=== PATIENT | female | born 2000 ===

== ENCOUNTER 2024-12-22 21:15 | Emergency (ER) | payer SELFPAY ==
--- OUTSIDE RECORDS SUMMARY | 2024-12-22 21:18 | XMS_ITS | Clinical Summary ---
Author Organization [facility] Address [address] [place] [address] Phone Care Team Providers Care Ladle Pourer Name Role Phone Ronald, Ashlie Marcelino APRN, TRI Primary Care Provider Allergies Active Allergy Reactions Criticality Noted Date Comments Amoxicillin Rash 01/10/2016 Penicillins Unknown 10/22/2018 Medications FLUoxetine (PROZAC) 20 MG Capsule Take 20 mg by mouth daily. Active traZODone (DESYREL) 50 MG Tablet Take 50 mg by mouth nightly. Active Norethin Chriss-Eth Estrad-FE 1.5-30 MG-MCG Tablet Take 1 Tab by mouth daily. Active Loratadine 10 MG Capsule Take 10 mg by mouth daily. Active fluticasone (FLONASE ALLERGY RELIEF) 50 MCG/ACT Suspension 1-2 Sprays by Nasal route daily. Use in each nostril as directed. 1 Bottle 3 6 Active ibuprofen (MOTRIN) 800 MG Tablet Take 1 Tab by mouth every 8 hours as needed for Pain. 30 Tab 7 Active ibuprofen (MOTRIN) 600 MG Tablet Take 1 Tab by mouth every 8 hours. 20 Tab 9 Active cyclobenzaprine (FLEXERIL) 10 MG Tablet Please take 1/2 tablet(5mg) PO TID prn muscle spasms 5 Tab 9 Active Etonogestrel (NEXPLANON SC) by Subcutaneous route. Active ibuprofen (MOTRIN) 600 MG Tablet Take 1 Tab by mouth every 8 hours as needed for Moderate or more severe pain. 20 Tab 9 Active diazePAM (VALIUM) 5 MG Tablet Take 1 Tab by mouth every 8 hours as needed for Other (paresthesias). 12 Tab 9 Active methylPREDNISol one (MEDROL DOSPACK) 4 MG Tablet Therapy Pack See product package insert for dosing schedule 21 Tab 0 Active azithromycin (ZITHROMAX Z-ALISHA) 250 MG Tablet 2 tab(s) daily for 1 day, then 1 tab(s) daily for days 2-5. 6 Tab 0 Active ondansetron (Zofran ODT) 4 MG TABLET DISPERSIBLE Take 1 Tablet by mouth every 8 hours as needed for Nausea - 1st line. 20 Tablet 1 Active Active Problems No known active problems Immunizations Immunization Administration Dates Next Due TDAP Vaccine 04/23/2019 Social History Tobacco Use Types Packs/Day Years Used Date Smoking Tobacco: Passive Smo ke Exposure - Never Smoker Smokeless Tobacco: Never Alcohol Use Standard Drinks/Week Comments No 0 (1 standard drink = 0.6 oz pur e alcohol) Comments No Sex and Gender Information Value Date Recorded Sex Assigned at Not on file Legal Sex Female 10:40 PM CDT Gender Identity Not on file Sexual Orientation Not on file Last Filed Vital Signs Vital Sign Reading Time Taken Comments Blood Pressure 147/87 11/07/2020 4:19 PM CDT Pulse 84 11/07/2020 4:19 PM CDT Temperature 36.6 C (97.9 F) 11/07/2020 1:30 PM CDT Respiratory Rate 22 11/07/2020 1:33 PM CDT Oxygen Saturation 98% 11/07/2020 1:33 PM CDT Inhaled Oxygen Concentration - - Weight 108.4 kg (239 lb) 11/07/2020 1:33 PM CDT Height 144.8 cm (4' 9) 11/07/2020 1:33 PM CDT Body Mass Index 51.72 11/07/2020 1:33 PM CDT Plan of Treatment Health Maintenance Due Date Last Done Comments Hepatitis C Virus (HCV) Screening 2000 SARS-COV-2 Immunization ( season) 2024 12/03/2020, 10/31/2020 Influenza Immunization (Season Ended) 2025 04/17/2016, 03/19/2014, 03/28/2013, Additional history exists Respiratory Syncytial Virus (RSV) Immunization (Adult) (1 - 1-dose 75+ series) 02/09/2075 Hepatitis B Immunization Completed 001, 2000, 2000 Pneumococcal Immunization Combined Aged Out 2000, 2000, 2000 No longer eligible based on patient's age to complete this topic Human Papillomavirus (HPV) Immunization Completed 08/10/2012, 04/13/2012, 02/04/2012 Meningococcal Immunization (ACWY) Completed 09/27/2016, 05/07/2011 DTaP/Tdap/Td Immunization Discontinued 2018, 04/08/2010, 03/05/2004, Additional history exists Rotavirus Immunization Aged Out No lo nger eligible based on patient's age to complete this topic Insurance MEDICAID [employer] Care Teams Ladle Pourer Relationship Specialty Start Date End Date Ashlie Cardenas APRN, CNP [address] [place] [address] PCP - General Advanced Practice Nurse 01/09/20
[2024-12-22 21:23] VITALS: BP 130/78; PULSE 106; RESP 20; TEMP 36.6
--- OUTSIDE RECORDS SUMMARY | 2024-12-22 22:02 | XMS_ITS | Clinical Summary ---
Author Organization [facility] Address [address] [place] [address] Phone Care Team Providers Care Credit Card Specialist Name Role Phone Ronald, Ashlie Marcelino APRN, [...] HEALTH PLAN GENERIC MED[place]ID [place] Care Teams Credit Card Specialist Relationship Specialty Start Date End Date Ashlie Cardenas APRN, CNP [address] [place] [address] PCP - General Advanced Practice Nurse 01/09/20
--- OUTSIDE RECORDS SUMMARY | 2024-12-22 22:02 | XMS_ITS | Clinical Summary ---
Author Organization [facility] Address [address] [place] [address] Care Team Providers Care Toppiece Chopper Name Role Phone Rc Rome MD Primary Care Provider [phone] Allergies Active Allergy Reactions Criticality Noted Date Comments Amoxicillin Anaphylaxis High 04/09/2022 Animal Dander Hives High 09/15/2024 Ciprofloxacin Hives High 09/15/2024 Penicillins Anaphylaxis,Rash,Lupe rt ness of Breath/Wheezing,Unknow n,Hives High 01/10/2016 throat swells up and hives all over with penicillin, amoxicillin; pt unsure if she has had cephalosporins in the past Medications albuterol sulfate HFA 90 mcg/actuation aerosol inhaler INHALE 2 PUFFS BY MOUTH EVERY 4 HOURS NEEDED FOR SHORTNESS OF BREATH OR WHEEZING OR COUGH 4 Active ARIPiprazole (ABILIFY) 5 mg tablet Take 5 mg by mouth. 4 Active busPIRone (BUSPAR) 10 mg tablet Take 10 mg by mouth 2 times daily. 4 Active loratadine 10 mg Capsule Take 10 mg by mouth daily. Active PARoxetine HCl (PAXIL) 20 mg tablet Take 20 mg by mouth daily in the morning. 4 Active ondansetron (ZOFRAN) 4 mg Tablet Take 1 Tablet (4 mg) by mouth every 8 hours as needed for Nausea/Emesis. 10 Tablet 5 Active ibuprofen (MOTRIN) 800 mg tablet Take 1 Tablet (800 mg) by mouth every 6 hours as needed for Pain. 40 Tablet Active HYDROcodone-elisabeth taminophen (NORCO) 5-325 mg tabletIndicatio ns:Burn (any degree) involving less than 10% of body surface Take 1 Tablet by mouth every 4 hours as needed for Pain. Max Daily Amount: 6 Tablets 20 Tablet Active Active Problems No known active problems Encounters Date Type Department Care Team Description 12/18/2024 External Device Data [facility]STRACTION Provider, Abstract 12/11/2024 External Device Data [facility] Provider, Abstract 12/11/2024 External Device Data [facility] Provider, Abstract 11/08/2024 External Device Data [facility] Provider, Abstract 10/16/2024 External Device Data [facility]STRACTION Provider, Abstract 10/16/2024 External Device Data [facility]STRACTION Provider, Abstract 10/16/2024 External Device Data [facility]STRACTION Provider, Abstract from Last 3 Months Social History Tobacco Use Types Packs/Day Years Used Date Smoking Tobacco: Unknown Tobacco Cessation:Counseling Given: Not Answered Feeling Safe Answer Date Recorded Are you in a relationship wi th someone who hurts you emotionally and/or physically? No 09/15/2024 Comments Unknown Sex and Gender Information Value Date Recorded Sex Assigned at Not on file Legal Sex Female 4:54 PM CDT Gender Identity Not on file Sexual Orientation Not on file Last Filed Vital Signs Vital Sign Reading Time Taken Comments Blood Pressure 121/81 09/15/2024 8:56 PM CDT Pulse 92 06/21/2024 11:10 AM CISCO ENGINEER Temperature 36.3 C (97.4 F) 09/15/2024 8:56 PM CDT Respiratory Rate 18 09/15/2024 8:56 PM CDT Oxygen Saturation 100% 09/15/2024 8:56 PM CDT Inhaled Oxygen Concentration - - Weight 104.3 kg (230 lb) 09/15/2024 8:56 PM CDT Height 144.8 cm (4' 9) 09/15/2024 8:56 PM CDT Body Mass Index 49.77 09/15/2024 8:56 PM CDT Plan of Treatment Health Maintenance Due Date Last Done Comments HPV VACCINES (1 - 3-dose series) 02/09/2015 HEPATITIS B VACCINES (1 of 3 - 19+ 3-dose series) 02/09/2019 HPV/Cotest (21-29) 02/09/2021 COVID-19 Vaccine (4 - 2023-2 5 season) 2024 09/16/2022, 11/28/2020, 10/31/2020 INFLUENZA VACCINE (#1) 2025 CERVICAL CANCER SCREENING 11/17/2025 PAP SMEAR 11/17/2025 11/17/2022 DTAP/TDAP/TD VACCINES (2 - T d or Tdap) 04/23/2029 04/23/2019 Insurance [facility] [place]ICA[place] [id number] [facility] MEDICAID Care Teams Toppiece Chopper Relationship Specialty Start Date End Date Rc Rome MD [address] [place] [address] PCP - General Family Practice 01/28/24
== END 2024-12-22 21:55 | disposition left against medical advice (07) ==
PROVIDERS: PCP Internal Medicine Pulmonary Disease
DX: R11.2 Nausea with vomiting, unspecified (principal)
CPT/HCPCS: 99199